=== PATIENT | female | born 1995 | race African-American/Black ===

== ENCOUNTER 2023-09-26 09:53 | Emergency (ER) | payer OTHER ==
--- NOTE | 2023-09-26 10:34 | ED ---
Skin/Abscess/FB HPI - General Chief complaint: Skin/Abscess/Foreign Body Stated complaint: Rash Time Seen by Provider: 09/26/23 10:05 Source: patient, RN notes reviewed Mode of arrival: ambulatory Limitations: no limitations - History of Present Illness Initial comments: This is a 28-year-old female presents emergency department chief complaint of a rash on her neck. Patient states that she noticed this rash began about 2 to 3 weeks ago. She states that it is pruritic and has been spreading distally onto parts of her neck. Denies use of new soaps, detergents, lotions, perfumes. States that she went to the urgent care last when she was prescribed a topical triamcinolone cream which she has been using every day with no relief. Patient states that she tried at home topical cortisone and Benadryl without relief. Patient notes that she. She states that she shaves the area of skin on her neck about 3 weeks ago with a razor. - Related Data Previous Rx's Medication Instructions Recorded Famotidine [Pepcid] 20 mg PO DAILY #7 tablet 09/26/23 predniSONE 50 mg PO DAILY #5 tab 09/26/23 Allergies Allergy/AdvReac Type Severity Reaction Status Date / Time No Known Allergies Allergy Verified 09/26/23 10:06 Review of Systems ROS Statement: Those systems with pertinent positive or pertinent negative responses have been documented in the HPI. ROS Other: All systems not noted in ROS Statement are negative. Past Medical History Past Medical History: No Reported History History of Any Multi-Drug Resistant Organisms: None Reported Past Surgical History: Tonsillectomy Past Psychological History: No Psychological Hx Reported Smoking Status: Current every day smoker, Vaper Past Alcohol Use History: Rare Past Drug Use History: Marijuana General Exam Limitations: no limitations General appearance: alert, in no apparent distress Head exam: Present: atraumatic, normocephalic, normal inspection Eye exam: Present: normal appearance, PERRL, EOMI. Absent: scleral icterus, conjunctival injection, periorbital swelling ENT exam: Present: normal exam, mucous membranes moist Neck exam: Present: normal inspection, other (under chin and on anterior skin of neck area of raised macular non edematous or erythematous rash extending onto the proximal chest, excoriations noted. no open areas of skin or crusting). Absent: tenderness, meningismus, lymphadenopathy Respiratory exam: Present: normal lung sounds bilaterally. Absent: respiratory distress, wheezes, rales, rhonchi, stridor Cardiovascular Exam: Present: regular rate, normal rhythm, normal heart sounds. Absent: systolic murmur, diastolic murmur, rubs, gallop, clicks GI/Abdominal exam: Present: soft, normal bowel sounds. Absent: distended, tenderness, guarding, rebound, rigid Extremities exam: Present: normal inspection, full ROM, normal capillary refill. Absent: tenderness, pedal edema, joint swelling, calf tenderness Back exam: Present: normal inspection Neurological exam: Present: alert, oriented X3, CN II-XII intact Psychiatric exam: Present: normal affect, normal mood Skin exam: Present: warm, dry, intact, normal color, rash (see above), urticaria. Absent: erythema, vesicles Course Vital Signs 09/26/23 10:04 Temperature 97.8 F Pulse Rate 92 Respiratory 16 Rate Blood Pressure 123/81 O2 Sat by Pulse 100 Oximetry Medical Decision Making - Medical Decision Making Was pt. sent in by a medical professional or institution (Dr. PA, ACID SPLICER, urgent care, hospital, or [place] [facility] facility...) When possible be specific @ -No Did you speak to anyone other than the patient for history (EMS, parent, family, police, friend...)? What history was obtained from this source @ -No Did you review nursing and triage notes (agree or disagree)? Why? @ -I reviewed and agree with nursing and triage notes Were old charts reviewed (outside hosp., previous admission, EMS record, old EKG, old radiological studies, urgent care reports/EKG's, [place] [facility] facility records)? Report findings @ -No old charts were reviewed Differential Diagnosis (chest pain, altered mental status, abdominal pain women, abdominal pain men, vaginal bleeding, weakness, fever, dyspnea, syncope, headache, dizziness, GI bleed, back pain, seizure, CVA, palpatations, mental health, musculoskeletal)? @ -allergic reaction, hives, dermatitis EKG interpreted by me (3pts min.). @ -None X-rays interpreted by me (1pt min.). @ -None done CT interpreted by me (1pt min.). @ -None done U/S interpreted by me (1pt. min.). @ -None done What testing was considered but not performed or refused? (CT, X-rays, U/S, labs)? Why? @ -None What meds were considered but not given or refused? Why? @ -None Did you discuss the management of the patient with other professionals (professionals i.e. , PA, ACID SPLICER, lab, RT, psych nurse, social work lecturer, commercial real estate associate, teacher, corporate ethics officer, caser up)? Give summary @ -No Was smoking cessation discussed for >3mins.? @ -No Was critical care preformed (if so, how long)? @ -No Were there social determinants of health that impacted care today? How? (Homelessness, low income, unemployed, alcoholism, drug addiction, transportation, low edu. Level, literacy, decrease access to med. care, care home, rehab)? @ -No Was there de-escalation of care discussed even if they declined (Discuss DNR or withdrawal of care, Hospice)? DNR status @ -No What co-morbidities impacted this encounter? (DM, HTN, Smoking, COPD, CAD, Cancer, CVA, ARF, Chemo, Hep., AIDS, mental health diagnosis, sleep apnea, morbid obesity)? @ -None Was patient admitted / discharged? Hospital course, mention meds given and route, prescriptions, significant lab abnormalities, going to OR and other pertinent info. @ -Discharged. 28-year-old female with complaint of rash. On physical examination patient was noted to have macular raised rash on her neck that extends to proximal chest that is raised and about 0.25 cm of each area. The skin also noted to have excoriation rivera and irritation due to itching. Presentation of rash patient given an allergic combination of medications including oral Benadryl, famotidine, Lovenox shot of Solu-Medrol. On reevaluation the patient she states that the itching has markedly improved after medications and physical examination revealed that swelling has markedly subsided. Patient will be prescribed outpatient course of prednisone with addition to famotidine for antihistamine effect. Patient is in agreement with this. Discussed with Dr. Balbuena Undiagnosed new problem with uncertain prognosis? @ -No Drug Therapy requiring intensive monitoring for toxicity (Heparin, Nitro, Insulin, Cardizem)? @ -No Were any procedures done? @ -No Diagnosis/symptom? @ -hives, allergic reaction, rash Acute, or Chronic, or Acute on Chronic? @ -acute Uncomplicated (without systemic symptoms) or Complicated (systemic symptoms)? @ -[uncomplicated Side effects of treatment? @ -No Exacerbation, Progression, or Severe Exacerbation? @ -No Poses a threat to life or bodily function? How? (Chest pain, [place], [place], pneumonia, PE, COPD, DKA, ARF, appy, cholecystitis, CVA, Diverticulitis, Homicidal, Suicidal, threat to staff... and all critical care pts) @ -No Disposition Clinical Impression: Rash Narrative: Please return to the Emergency Department if symptoms worsen or any other concerns. Disposition: HOME SELF-CARE Condition: Good Instructions (If sedation given, give patient instructions): Acute Rash (ED) Prescriptions: Famotidine [Pepcid] 20 mg PO DAILY #7 tablet predniSONE 50 mg PO DAILY #5 tab Is patient prescribed a controlled substance at d/c from ED?: No Referrals: None,Stated [Primary Care Provider] - 1-2 days Time of Disposition: 12:03
[2023-09-26 10:41] VITALS: BP 123/81; PULSE 92; RESP 16; TEMP 97.8
[2023-09-26] MEDS: diphenhydrAMINE 25 MG CAP PO STA (11:23)
[2023-09-26] MEDS: FAMOTIDINE 20 MG TAB PO STA (11:23)
[2023-09-26] MEDS: methylPREDNISolone SOD SUCCI 125 MG/2 ML VIAL IM ONE (11:23)
== END 2023-09-26 12:10 | disposition home or self-care (01) ==
LOC: EC 09:53
DX: R21 Rash and other nonspecific skin eruption (principal); F17.290 Nicotine dependence, other tobacco product, uncomplicated
CPT/HCPCS: 99282; 96372; J2919

== ENCOUNTER 2023-10-16 08:40 | Emergency (ER) | payer OTHER ==
[2023-10-16 09:05] VITALS: BP 127/79; PULSE 78; RESP 18; TEMP 98
--- NOTE | 2023-10-16 09:37 | ED ---
General Adult HPI - General Chief complaint: Extremity Problem,Nontraumatic Stated complaint: R Arm Pain Time Seen by Provider: 10/16/23 08:54 Source: patient Mode of arrival: ambulatory Limitations: no limitations - History of Present Illness Initial comments: Dictation was produced using [employer] dictation software. please excuse any grammatical, word or spelling errors. Chief Complaint: 28-year-old female presents with right shoulder pain and weakness History of Present Illness: Patient is a 28-year-old female presents to the emergency department right shoulder pain and weakness. Patient works with a local [employer]. She states she got off work all of a sudden started to have pain and tingling to her right upper extremity. Patient has previous history of right shoulder surgery from several years ago. Patient has had chronic issues of the right shoulder. Denies any hand numbness. Denies any weakness of the elbow and right hand. Patient has difficulty abducting her arm. She states that she has majority of her pain in her axillary area. The ROS documented in this emergency department record has been reviewed and confirmed by me. Those systems with pertinent positive or negative responses have been documented in the HPI. All other systems are other negative and/or noncontributory. - Related Data Previous Rx's Medication Instructions Recorded Famotidine [Pepcid] 20 mg PO DAILY #7 tablet 09/26/23 predniSONE 50 mg PO DAILY #5 tab 09/26/23 HYDROcodone/APAP 5-325MG [[place] 1 tab PO Q6HR PRN 3 Days #12 tab 10/16/23 5-325] Allergies Allergy/AdvReac Type Severity Reaction Status Date / Time No Known Allergies Allergy Verified 10/16/23 08:53 Review of Systems ROS Statement: Those systems with pertinent positive or pertinent negative responses have been documented in the HPI. ROS Other: All systems not noted in ROS Statement are negative. Past Medical History Past Medical History: No Reported History History of Any Multi-Drug Resistant Organisms: None Reported Past Surgical History: Tonsillectomy Past Psychological History: No Psychological Hx Reported Smoking Status: Current every day smoker, Vaper Past Alcohol Use History: Occasional Past Drug Use History: Marijuana General Exam - General Exam Comments Initial Comments: General: Well-appearing, nontoxic, no acute distress. Head: Normocephalic, atraumatic Eyes: PERRLA, EOMI ENT: Airway patent Chest: Nonlabored breathing Skin: No visual rash, normal skin tone Neuro: Alert and oriented 3 Musculoskeletal: No gross abnormalities Right upper extremity: Decreased active range of motion of abduction of the right shoulder to approximately 20 degrees. Passive range of motion intact though patient grimacing through movement Limitations: no limitations Course Vital Signs 10/16/23 08:50 Temperature 98.0 F Pulse Rate 78 Respiratory 18 Rate Blood Pressure 127/79 O2 Sat by Pulse 100 Oximetry Medical Decision Making - Medical Decision Making Was pt. sent in by a medical professional or institution (, PHILIPPE, BUFFING AND SUEDING MACHINE OPERATOR, urgent care, hospital, or custodial...) When possible be specific @ -No Did you speak to anyone other than the patient for history (EMS, parent, family, police, friend...)? What history was obtained from this source @ -No Did you review nursing and triage notes (agree or disagree)? Why? @ -I reviewed and agree with nursing and triage notes Were old charts reviewed (outside hosp., previous admission, EMS record, old EKG, old radiological studies, urgent care reports/EKG's, custodial records)? Report findings @ -No old charts were reviewed Differential Diagnosis (chest pain, altered mental status, abdominal pain women, abdominal pain men, vaginal bleeding, musculoskeletal, weakness, fever, dyspnea, syncope, headache, dizziness, GI bleed, back pain, seizure, CVA, palpatations, mental health)? @ -Shoulder fracture, rotator cuff tear, dislocated shoulder EKG interpreted by me (3pts min.). @ -None done X-rays interpreted by me (1pt min.). @ -Right shoulder x-ray shows previous surgery with subacromial ossification CT interpreted by me (1pt min.). @ -None done U/S interpreted by me (1pt. min.). @ -None done What testing was considered but not performed or refused? (CT, X-rays, U/S, labs)? Why? @ -None What meds were considered but not given or refused? Why? @ -None Did you discuss the management of the patient with other professionals (professionals i.e. PHILIPPE Mercado, BUFFING AND SUEDING MACHINE OPERATOR, lab, RT, psych nurse, director social welfare, pulp roller, teacher, human resource officer, rifle case repairer)? Give summary @ -No Was smoking cessation discussed for >3mins.? @ -No Was critical care preformed (if so, how long)? @ -No Were there social determinants of health that impacted care today? How? (Homelessness, low income, unemployed, alcoholism, drug addiction, transportation, low edu. Level, literacy, decrease access to med. care, alf, rehab)? @ -No Was there de-escalation of care discussed even if they declined (Discuss DNR or withdrawal of care, Hospice)? DNR status @ -No What co-morbidities impacted this encounter? (DM, HTN, Smoking, COPD, CAD, Cancer, CVA, ARF, Chemo, Hep., AIDS, mental health diagnosis, sleep apnea, morbid obesity)? @ -None Was patient admitted / discharged? Hospital course, mention meds given and route, prescriptions, significant lab abnormalities, going to OR and other pertinent info. @ -28-year-old female presents to the emergency department for right shoulder pain. She has history of previous surgery. There does appear to be some degenerative changes at the right shoulder likely exacerbated by previous shoulder surgery. Patient told to follow-up with her primary orthopedic surgery and. She is also given referral to [facility] Undiagnosed new problem with uncertain prognosis? @ -No Drug Therapy requiring intensive monitoring for toxicity (Heparin, Nitro, Insulin, Cardizem)? @ -No Were any procedures done? @ -No Diagnosis/symptom? Acute, or Chronic, or Acute on Chronic? Uncomplicated (without systemic symptoms) or Complicated (systemic symptoms)? @ -Shoulder pain Side effects of treatment? @ -No Exacerbation, Progression, or Severe Exacerbation? @ -No Poses a threat to life or bodily function? How? (Chest pain, [place], [place], pneumonia, PE, COPD, DKA, ARF, appy, cholecystitis, CVA, Diverticulitis, Homicidal, Suicidal, threat to staff... and all critical care pts) @ -yes - Lab Data Lab Results 10/16/23 Range/Units 10:20 Urine HCG, Qual Not Detected (Not Detectd) Disposition Clinical Impression: Shoulder pain Disposition: HOME SELF-CARE Condition: Good Instructions (If sedation given, give patient instructions): Shoulder Pain (ED) Prescriptions: HYDROcodone/APAP 5-325MG [[place] 5-325] 1 tab PO Q6HR PRN 3 Days #12 tab PRN Reason: Severe Pain Is patient prescribed a controlled substance at d/c from ED?: Yes If prescribed controlled substance>3 days was MAPS reviewed?: Prescribed <3 Days Referrals: Robert Fernandez DO [Doctor of Osteopathic Medicine] - 1-2 days Time of Disposition: 10:52
[2023-10-16] MEDS: KETOROLAC 15 MG/ML 1 ML VIAL IM STA (09:53)
--- NOTE | 2023-10-16 09:54 | XR ---
EXAMINATION TYPE: XR shoulder complete 3 views RT DATE OF EXAM: 10/16/2023 Comparison: None Clinical History: 28-year-old female shoulder pain. Surgery over 10 years ago. Findings: There is some bony spurring at the undersurface of the acromion. There is a 8 x 2 mm calcific focus i n the subacromial space; unclear if this represents some heterotopic ossification related to the donovan ent's prior surgery or other calcification. AC joint appears congruent and intact as does the glenohu meral joint. Previous antegrade intramedullary nail. Partially visualized chronic fracture deformity at the proximal third humeral shaft. Bony sclerosis and irregularity of the greater tuberosity. No ac gakona fracture, subluxation, dislocation. Impression: 1. Previous antegrade intramedullary nail fixation. Partially visualized healed fracture deformity al matteo the proximal third humeral shaft. 2. Sclerosis and irregularity at the greater tuberosity may partly be old postsurgical change. It cou ld also signify chronic rotator cuff tendinopathy. Clinically correlate. 3. An 8 x 2 mm calcific/ossific focus in the subacromial space. Unclear if this represents heterotopi c ossification related to prior surgery or a calcific tendinitis/bursitis. Again, clinical correlatio n recommended. 4. Otherwise, no acute osseous abnormality seen.
== END 2023-10-16 11:18 | disposition home or self-care (01) ==
LOC: EC 08:40
DX: M25.511 Pain in right shoulder (principal); F17.290 Nicotine dependence, other tobacco product, uncomplicated
CPT/HCPCS: 81025; 73030; 99283; 96372; J1885